=== PATIENT | male | born 1965 | race Caucasian/White ===

== ENCOUNTER 2016-11-23 19:15 | Emergency (ER) | payer MEDICAID, OTHER ==
[~2016-11-23] VITALS: Ht 180.3 cm; Wt 95.0 kg
[2016-11-23] MEDS ORDERED: OXYC-23 PO (19:21)
[2016-11-23] MEDS ORDERED: KETOROLAC 60MG/2ML VIAL IM ONE (21:15)
[2016-11-24 01:00] VITALS: BP 140/77
== END 2016-11-24 01:00 | disposition home or self-care (01) ==
LOC: ER 20:06
DX: M25.552 Pain in left hip (principal); G89.29 Other chronic pain; R10.2 Pelvic and perineal pain; M51.27 Other intervertebral disc displacement, lumbosacral region; W01.0XXA Fall on same level from slipping, tripping and stumbling without subsequent striking against object, initial encounter; Y93.9 Activity, unspecified; Y92.89 Other specified places as the place of occurrence of the external cause; Y99.8 Other external cause status
CPT/HCPCS: 72192; 73502; 73700; 96372; 99284; J1885